=== PATIENT | male | born 1960 | race Caucasian/White ===

== ENCOUNTER 2019-12-08 10:36 | Emergency (ER) | payer OTHER, BC, SELFPAY ==
--- NOTE | ~2019-12-08 | XR_ITS ---
EXAMINATION: XR ankle RT min 3V INDICATION: Right ankle pain TECHNIQUE: Four views of the right ankle are obtained. COMPARISON: None available FINDINGS: There is marked medial soft tissue swelling of ankle. Also seen is dorsal soft tissue swell ing of the foot overlying the distal metatarsals. No fracture is identified. Bone alignment is normal . The joint spaces are maintained. IMPRESSION: 1. Soft tissue swelling of the ankle and foot without acute osseous abnormality identified. Reviewed, dictated and finalized at location A.
--- NOTE | 2019-12-08 10:48 | ED.GENADULT ---
HPI - General Adult General Chief complaint: Extremity Injury, Lower Stated complaint: R/foot injury Time Seen by Provider: 12/08/19 10:55 Source: patient Mode of arrival: ambulatory Limitations: no limitations History of Present Illness HPI narrative: 59-year-old male patient presents to the [facility] with complaints of right foot pain. Patient states that he was at work about a half an hour prior to arrival today and a forklift accidentally went over his right foot. Patient states most of the pain is toward the medial ankle. Denies putting ice on it or taking anything for pain prior to arrival. Patient states he is able to walk on it but has increasing pain when doing so. Related Data Home Medications Medication Instructions Recorded Confirmed amlodipine 7.5 mg PO DAILY 12/08/19 12/08/19 atorvastatin 10 mg PO DAILY 12/08/19 12/08/19 Allergies Allergy/AdvReac Type Severity Reaction Status Date / Time No Known Allergies Allergy Verified 12/08/19 10:55 Review of Systems Review of Systems: Narrative: CONSTITUTIONAL: Denies fever, chills, or sweats. EYES: Denies visual changes, redness, or discharge. ENT: Denies rhinorrhea, congestion, sore throat, or otalgia. CARDIOVASCULAR: Denies chest pain, palpitations, or edema. RESPIRATORY: Denies cough or dyspnea. GASTROINTESTINAL: Denies abdominal pain, nausea, vomiting, or diarrhea. GENITOURINARY: Denies dysuria or hematuria. SKIN: Denies rash or itching. MUSCULOSKELETAL: Denies back pain, joint pain, or myalgia. Positive right foot and ankle pain NEUROLOGIC: Denies headache, numbness, or weakness. PSYCHIATRIC: Denies anxiety or depression. PMFSH Past Medical History Medical History (Updated 12/08/19 @ 11:26 by HEATHER Everett) Hypercholesterolemia Hypertension Surgical History Surgical History (Updated 12/08/19 @ 11:01 by HEATHER Everett) History of appendectomy Comments At the time of my signature I agree with nursing past medical history, surgical, social, and family history. There is no relevant family history pertinent to the presenting complaint. Exam Narrative: Exam Narrative: GENERAL: Well-appearing, well-nourished, and in no acute distress. HEAD: Normocephalic, atraumatic. EYES: PERRLA and EOMI. ENT: Nares clear, no rhinorrhea or epistaxis. Mucous membranes moist. NECK: Supple. No lymphadenopathy CHEST: Clear to auscultation. No respiratory distress. HEART: Regular rate and rhythm. No murmur heard. Normal peripheral pulses. ABDOMEN: Soft, nontender, nondistended, normal active bowel sounds. EXTREMITIES patient able to bear weight and ambulate but has increased pain to the right foot and ankle. There is a slight abrasion noted to the medial side of the right ankle with slight ecchymosis present, no erythema, lesions, ulcers or break in skin integrity. The R foot is without obvious asymmetry or deformity when compared to theL foot. There is a significant amount of swelling present to the right ankle on the lateral and medial sides. No bony step-off, nontender to palpation over the toes, tenderness noted on palpation of the midfoot, no palpation noted to the hindfoot or sole. Patient does have tenderness noted to the medial malleolus area. Decrease dorsiflexion, and inversion. Distal motor and neurovascular status are intact SKIN: Warm, dry, no rash. NEURO: No focal deficits. Alert and oriented x3. Course Reevaluation(s) Reevaluation #1: Patient's x-ray came back showing soft tissue swelling but no obvious fracture at this time. Patient most likely has a severe sprain. Plan of care is to Artur wrap the ankle and give him crutches. Because this was a work injury I can take him off work for today but told him that he needs to see his primary doctor for additional time off or restrictions to return to work. Unable to discuss this with patient at this time due to the fact that he is on the phone. Date: 12/08/19 Time: 11:28 Reevaluation #2: Did s
[2019-12-08 10:51] VITALS: BP 134/96; PULSE 83; RESP 18; TEMP 37; O2SAT 98
[2019-12-08] MEDS: ACETAMINOPHEN 500 MG TABLET 1000 MG PO (11:25)
== END 2019-12-08 11:46 | disposition home or self-care (01) ==
PROVIDERS: Emergency Provider Nurse Practitioner Family
DX: S93.401A Sprain of unspecified ligament of right ankle, initial encounter (principal); X58.XXXA Exposure to other specified factors, initial encounter; Y99.0 Civilian activity done for income or pay; E78.00 Pure hypercholesterolemia, unspecified; I10 Essential (primary) hypertension
CPT/HCPCS: 73610; 99203; A9270; G0463